=== PATIENT | male | born 1995 | race Caucasian/White ===

== ENCOUNTER 2021-05-10 08:27 | Emergency (ER) | payer SELFPAY ==
[~2021-05-10] VITALS: Ht 180.3 cm; Wt 68.0 kg
--- NOTE | 2021-05-10 08:27 | NUR ---
Pt BIB [place] [facility] to bed 07.
[2021-05-10 08:29] VITALS: BP 163/90
[2021-05-10] MEDS ORDERED: LIDOCAINE/EPI 1% 1:100000 20 ML VIAL INJ ONE ×2 (08:40→08:43)
--- NOTE | 2021-05-10 08:46 | NUR ---
DR. RAMIREZ AT PT BEDSIDE FOR PROCEDURE.
[2021-05-10 09:17] VITALS: BP 163/90
== END 2021-05-10 09:20 ==
LOC: MED 08:27
DX: S70.351A Superficial foreign body, right thigh, initial encounter (principal); X58.XXXA Exposure to other specified factors, initial encounter; Y93.89 Activity, other specified; Y92.89 Other specified places as the place of occurrence of the external cause; Y99.8 Other external cause status
CPT/HCPCS: 99284; J2001

== ENCOUNTER 2021-08-31 01:35 | Emergency (ER) | payer SELFPAY ==
[~2021-08-31] VITALS: Ht 180.3 cm; Wt 68.0 kg
[2021-08-31 01:36] VITALS: BP 161/122
--- NOTE | 2021-08-31 01:36 | NUR ---
TO BED AMBULATORY
--- NOTE | 2021-08-31 01:45 | NUR ---
RECEIVED IN BED 8 WITH C/O RT 5TH TOE PAIN, REDNESS FOR 5-6 DAYS. PT STATES. "I'VE BEEN WALKING AROUND A LOT". RIGHT 5TH TOE RED AND SWOLLEN
--- NOTE | 2021-08-31 01:51 | NUR ---
DR. AVILA AT BEDSIDE FOR EXAM
[2021-08-31] MEDS ORDERED: LIDOCAINE 2% 1000 MG/50 ML VIAL INJ ONE (01:55)
[2021-08-31] MEDS ORDERED: HYDROcodone/APAP 5/325 MG 1 TAB TAB PO ONE (03:05)
[2021-08-31] MEDS ORDERED: CEPH-588 PO (03:07)
[2021-08-31] MEDS ORDERED: NAPR-54 PO (03:07)
[2021-08-31 03:20] VITALS: BP 148/99
--- NOTE | 2021-08-31 03:20 | NUR ---
Patient discharged with v/s stable. Written and verbal after care instructions given and explained. Patient verbalized understanding. Ambulatory with steady gait. All questions addressed prior to discharge. Advised to follow up with PMD.
== END 2021-08-31 01:45 | disposition home or self-care (01) ==
LOC: MED 01:35
DX: L03.031 Cellulitis of right toe (principal); F17.210 Nicotine dependence, cigarettes, uncomplicated; Z79.899 Other long term (current) drug therapy; Z71.6 Tobacco abuse counseling; Z98.890 Other specified postprocedural states
CPT/HCPCS: 99283; J2001

== ENCOUNTER 2022-08-17 00:27 | Emergency (ER) | payer SELFPAY ==
[~2022-08-17] VITALS: Ht 180.3 cm; Wt 68.0 kg
[~2022-08-17 00:27] MED LIST: CEPH-588 PO; NAPR-54 PO
--- NOTE | 2022-08-17 00:27 | NUR ---
PT [facility] [place] [facility], [employer]. TAKEN TO CHAIR
[2022-08-17 00:45] VITALS: BP 138/78
--- NOTE | 2022-08-17 01:08 | NUR ---
Dr. Burton examining patient.
[2022-08-17 01:29] VITALS: BP 138/78
== END 2022-08-17 01:29 | disposition home or self-care (01) ==
LOC: MED 00:27
DX: S00.83XA Contusion of other part of head, initial encounter (principal); V49.88XA Car occupant (driver) (passenger) injured in other specified transport accidents, initial encounter; Y93.89 Activity, other specified; Y92.89 Other specified places as the place of occurrence of the external cause; Y99.8 Other external cause status
CPT/HCPCS: 99283